=== PATIENT | female | born 1965 | race Hispanic/Latino ===

== ENCOUNTER 2017-12-10 11:04 | Emergency (ER) | payer SELFPAY ==
[2017-12-10 12:50] LABS: #Eosinphils 0.1 thou/uL (0.0-0.7); #Lymphocytes 1.6 thou/uL (1.20-3.40); #Monocytes 0.4 thou/uL (0.11-0.59); #Neutrophils 5.4 thou/uL (1.40-6.50); %Basophils 0.2 % (0.0-1.0); %Eosinophils 1.7 % (0.0-10.0); %Monocytes 5.6 % (0.0-10.0); %Neutrophils 71.6 % (42.0-75.0); Hemoglobin 14.4 g/dL (12.0-16.0); Mean Corpuscular HGB CONC 34.4 g/dL (32.0-36.0); Mean Corpuscular Hemoglobin 29.3 pg (27.0-31.0); Mean Corpuscular Volume 85.3 fL (78.0-98.0); Mean Platelet Volume 8.3 fL (7.4-10.4); Platelet Count 220 thou/uL (130-400); RBC Distribution Width 14.2 % (11.5-14.5); Red Blood Cell (RBC) Count 4.92 mill/uL (4.20-5.40); White Blood Cell (WBC) Count 7.6 thou/uL (4.8-10.8)
--- NOTE | 2017-12-10 12:51 | RAD ---
1 VIEW CHEST: Date: 12/10/17 COMPARISON: 12/01/16. HISTORY: Hypertension. FINDINGS: Normal cardiac silhouette. Pulmonary vessels and pulmonary hilum are normal. Costophrenic angles are clear. No consolidation or mass. No pneumothorax or osseous abnormalities. IMPRESSION: No acute cardiopulmonary process. POS: [facility]
[2017-12-10 13:06] LABS: CKMB 1.7 ng/mL (0-6.6); Troponin I Less than 0.010 ng/mL (< 0.028)
--- NOTE | 2017-12-10 14:14 | CT ---
CT BRAIN WITHOUT CONTRAST: Date: 12/10/17 HISTORY: Headache. Hypertension. COMPARISON: CT brain from 2007. FINDINGS: There is subtle increased density of the basilar artery, likely a focal area of calcification with so me atherosclerotic plaque. No acute hemorrhage or infarct. No midline shift or mass effect. Ventricul ar size and extra-axial CSF spaces are normal. Paranasal sinuses and mastoids are clear. IMPRESSION: No acute intracranial abnormality. POS: [facility]
[2017-12-10] MEDS ORDERED: Metoclopramide HCl 10 MG/2 ML VIAL ONE (14:39)
[2017-12-10] MEDS ORDERED: Ketorolac Tromethamine 30 MG/ML VIAL ONE (14:39)
[2017-12-10] MEDS ORDERED: Dexamethasone 4 mg/ml Vial ONE (14:39)
[2017-12-10] MEDS ORDERED: hydrALAZINE 20 MG/ML VIAL ONE (14:39)
== END 2017-12-10 16:24 | disposition home or self-care (01) ==
LOC: ERS 11:04
DX: I10 Essential (primary) hypertension (principal); Z79.899 Other long term (current) drug therapy
CPT/HCPCS: 36415; 70450; 71045; 82550; 82553; 83880; 84484; 85025; 93005; 96365; 96375; J0360; J1100; J1885; J2765

== ENCOUNTER 2018-08-08 09:16 | Emergency (ER) | payer OTHER, SELFPAY ==
[2018-08-08] MEDS ORDERED: Ketorolac Tromethamine 30 MG/ML VIAL ONE (10:01)
--- NOTE | 2018-08-08 10:21 | RAD ---
FRONTAL RADIOGRAPH CHEST: Date: 08/08/18 COMPARISON: 12/10/17. HISTORY: Hypertension, left arm numbness. FINDINGS: Lungs are clear. Heart and mediastinal contour unremarkable. IMPRESSION: No acute findings. POS: [facility]
[2018-08-08 10:24] LABS: #Eosinphils 0.1 thou/uL (0.0-0.7); #Lymphocytes 1.3 thou/uL (1.20-3.40); #Monocytes 0.3 thou/uL (0.11-0.59); #Neutrophils 5.6 thou/uL (1.40-6.50); %Basophils 0.2 % (0.0-1.0); %Eosinophils 0.9 % (0.0-10.0); %Lymphocytes 17.6 % (21.0-51.0); %Monocytes 4.3 % (0.0-10.0); Hemoglobin 14.1 g/dL (12.0-16.0); Mean Corpuscular HGB CONC 33.5 g/dL (32.0-36.0); Mean Corpuscular Hemoglobin 29.6 pg (27.0-31.0); Mean Corpuscular Volume 88.3 fL (78.0-98.0); Mean Platelet Volume 9.3 fL (7.4-10.4); Platelet Count 179 thou/uL (130-400); RBC Distribution Width 13.3 % (11.5-14.5); Red Blood Cell (RBC) Count 4.76 mill/uL (4.20-5.40); White Blood Cell (WBC) Count 7.3 thou/uL (4.8-10.8)
[2018-08-08 10:42] LABS: ALT (SGPT) 17 U/L (8-55); AST (SGOT) 17 U/L (5-34); Albumin 4.3 g/dL (3.5-5.0); Alkaline Phosphatase 85 U/L (40-150); Anion Gap 10 mmol/L (10-20); BUN (Urea Nitrogen) 9 mg/dL (9.8-20.1); Bilirubin, Total 0.4 mg/dL (0.2-1.2); Calc. Creatinine Clearance 0 mL/min (70-130); Calcium 9.8 mg/dL (7.8-10.44); Carbon Dioxide 24 mmol/L (22-29); Chloride 110 mmol/L (98-107); Estimated GFR-MDRD 86; Globulin 3.1 g/dL (2.4-3.5); Glucose 100 mg/dL (70-105); Potassium 3.5 mmol/L (3.5-5.1); Protein, Total 7.4 g/dL (6.0-8.3); Sodium 140 mmol/L (136-145)
[2018-08-08 11:11] LABS: Bilirubin Negative (Negative); Blood, Urine Negative (Negative); Clarity CLEAR (Clear); Glucose, Urine (Dipstick) Negative (Negative); Leukocyte Negative (Negative); Nitrite Negative (Negative); Protein, Urine (Dipstick) Negative (Neg-Trace); Specific Gravity, Urine 1.025 (1.002-1.036); Urobilinogen 0.2 mg/dL (0.2-1.0)
[2018-08-08] MEDS ORDERED: Morphine 4 MG/ML VIAL ONE (11:11)
[2018-08-08] MEDS ORDERED: Ondansetron PF 4 MG/2 ML Vial ONE (11:11)
[2018-08-08] MEDS ORDERED: hydrALAZINE 20 MG/ML VIAL ONE (11:54)
--- NOTE | 2018-08-08 12:14 | CT ---
CT HEAD WITHOUT IV CONTRAST: HISTORY: Headache. Hypertension. COMPARISON: 12/10/2017 FINDINGS: Right sphenoid and posterior right ethmoid sinus mucosal disease, worsening from prior exam (12/11/19 18). No focal mass or midline shift. No intraaxial or extraaxial hemorrhage. IMPRESSION: No significant acute intracranial process. No mass or bleed. Posterior right ethmoid and right sphe noid sinus mucosal disease. POS: [facility]
[2018-08-08 12:56] LABS: Troponin I Less than 0.010 ng/mL (< 0.028)
== END 2018-08-08 14:15 | disposition home or self-care (01) ==
LOC: ERS 09:16
DX: I10 Essential (primary) hypertension (principal); M79.602 Pain in left arm; Z87.891 Personal history of nicotine dependence; Z79.899 Other long term (current) drug therapy
CPT/HCPCS: 36415; 70450; 71045; 80053; 81003; 84484; 85025; 93005; 96374; 96375; J0360; J1885; J2270; J2405

== ENCOUNTER 2018-08-11 14:20 | Emergency (ER) | payer OTHER ==
[2018-08-11] MEDS ORDERED: Metoprolol Tartrate 50 MG TAB ONE (14:47)
--- NOTE | 2018-08-13 21:47 | EKG ---
Test Reason : Blood Pressure : / mmHG Vent. Rate : 104 BPM Atrial Rate : 104 BPM P-R Int : 154 ms QRS Dur : 094 ms QT Int : 354 ms P-R-T Axes : 054 016 073 degrees QTc Int : 465 ms Sinus tachycardia with Premature atrial complexes Cannot rule out Inferior infarct , age undetermined Abnormal ECG Confirmed by LAURE HERNANDEZ ([id number]), field map editor MARY ROCHA ([id number]) on 08/13/2018 9:46:42 PM Referred By: Confirmed By:LAURE HERNANDEZ
== END 2018-08-11 16:15 | disposition home or self-care (01) ==
LOC: ERS 14:20
DX: I10 Essential (primary) hypertension (principal); Z79.899 Other long term (current) drug therapy
CPT/HCPCS: 93005

== ENCOUNTER 2018-10-11 10:25 | Emergency (ER) | payer OTHER, SELFPAY ==
[2018-10-11] MEDS ORDERED: HYDROcodone/Acetaminophen 10/325 mg Tablet ONE (12:38)
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
[2018-10-11] MEDS ORDERED: Dexamethasone 4 MG TAB ONE (16:02)
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
== END 2018-10-11 16:00 | disposition home or self-care (01) ==
LOC: ERS 10:25
DX: S16.1XXA Strain of muscle, fascia and tendon at neck level, initial encounter (principal); M47.892 Other spondylosis, cervical region; I10 Essential (primary) hypertension; Z79.899 Other long term (current) drug therapy; X50.9XXA Other and unspecified overexertion or strenuous movements or postures, initial encounter
CPT/HCPCS: 72125; 72141; J8540

== ENCOUNTER 2018-11-08 17:25 | Emergency (ER) | payer OTHER ==
[2018-11-08] MEDS ORDERED: HYDROcodone/Acetaminophen 10/325 mg Tablet ONE (17:54)
== END 2018-11-08 18:49 | disposition home or self-care (01) ==
LOC: ERS 17:25
DX: M54.2 Cervicalgia (principal); I10 Essential (primary) hypertension; Z79.899 Other long term (current) drug therapy; Z79.891 Long term (current) use of opiate analgesic
CPT/HCPCS: 99283

== ENCOUNTER 2018-11-23 08:45 | Outpatient (CLI) | payer OTHER ==
[2018-11-23 10:04] LABS: Hemoglobin 13.3 g/dL (12.0-16.0); Mean Corpuscular HGB CONC 32.5 g/dL (32.0-36.0); Mean Corpuscular Hemoglobin 28.7 pg (27.0-31.0); Mean Corpuscular Volume 88.3 fL (78.0-98.0); Mean Platelet Volume 8.7 fL (7.4-10.4); Platelet Count 230 thou/uL (130-400); RBC Distribution Width 13.4 % (11.5-14.5); Red Blood Cell (RBC) Count 4.63 mill/uL (4.20-5.40); White Blood Cell (WBC) Count 8.4 thou/uL (4.8-10.8)
[2018-11-23 10:25] LABS: Anion Gap 11 mmol/L (10-20); BUN (Urea Nitrogen) 20 mg/dL (9.8-20.1); Calc. Creatinine Clearance 0 mL/min (70-130); Calcium 9.8 mg/dL (7.8-10.44); Carbon Dioxide 27 mmol/L (22-29); Chloride 107 mmol/L (98-107); Estimated GFR-MDRD 79; Glucose 90 mg/dL (70-105); Potassium 4.3 mmol/L (3.5-5.1); Sodium 141 mmol/L (136-145)
--- NOTE | 2018-11-24 11:28 | EKG ---
Test Reason : Blood Pressure : / mmHG Vent. Rate : 060 BPM Atrial Rate : 060 BPM P-R Int : 216 ms QRS Dur : 086 ms QT Int : 412 ms P-R-T Axes : 035 065 069 degrees QTc Int : 412 ms Sinus rhythm with 1st degree A-V block Otherwise normal ECG Confirmed by DEANNE CHANDLER ([id number]) on 11/24/2018 11:28:09 AM Referred By: MARLEN Confirmed By:DEANNE CHANDLER
== END 2018-11-23 08:46 | disposition home or self-care (01) ==
LOC: LABBT 08:45
PROVIDERS: ATTEND Neurological Surgery
DX: Z01.818 Encounter for other preprocedural examination (principal); M54.12 Radiculopathy, cervical region
CPT/HCPCS: 80048; 85027; 93005; 93010

== ENCOUNTER 2018-11-23 08:45 | Inpatient (IN) | payer OTHER ==
[2018-11-28] MEDS ORDERED: Fentanyl 250 MCG/5 ML VIAL ONE (10:00)
[2018-11-28] MEDS ORDERED: Sodium Chloride 0.9% 10 ML ONE (10:24)
[2018-11-28] MEDS ORDERED: Ondansetron HCl/PF 4 MG/2 ML Vial IVP PRN (11:47)
[2018-11-28] MEDS ORDERED: HYDROmorphone 2 MG/ML VIAL SLOW IVP PRN (11:47)
[2018-11-28] MEDS ORDERED: Promethazine HCl 25 MG/ML VIAL IM PRN ×2 (11:47→17:16)
[2018-11-28] MEDS ORDERED: Promethazine HCl 25 MG/ML VIAL SLOW IVP PRN (11:47)
--- NOTE | 2018-11-28 11:51 | OP ---
DATE OF PROCEDURE: 11/28/2018 TESTING MANAGER: Shukri Jorge PA-C PROCEDURE PERFORMED: 1. Anterior cervical diskectomy, C4 through C7 interbody arthrodesis. 2. Biomechanical device, local morselized autograft, demineralized bone matrix, anterior titanium instrumentation, C4 to C7. DESCRIPTION OF PROCEDURE: The patient was brought to the operating room and intubated. She was positioned supine in the modest extension on a gel-filled donut. An incision was made in the right precervical area and dissected medial to the sternocleidomastoid muscle, identified the anterior cervical spine and the level was confirmed by x-ray. We debrided the anterior osteophytes, placed distraction across the disk spaces, and using the operative microscope and microdissection techniques, completely decompressed the intervertebral disks from parameter foramen to foramen from C4 to C7. The bony endplates were then decorticated for the purpose of arthrodesis and appropriate-sized intervertebral biomechanical PEEK device was brought into the field, filled with demineralized bone matrix local morselized autograft, and tapped in place securely at C4-C5, C5-C6, and C6-C7. Next, the anterior plate was brought into the field and secured at C4, C5, C6, and C7 using two 14-mm screws at each level. The wound was then extensively irrigated. MAC hemostasis was secured. The wound was closed in anatomic layers over a drain. Job ID: [id number]
[2018-11-28] MEDS ORDERED: Fentanyl 100 MCG/2 ML VIAL ONE (12:05)
[2018-11-28] MEDS ORDERED: HYDROmorphone 2 MG/ML VIAL ONE (12:17)
[2018-11-28 13:33] VITALS: BMI 36.2
[2018-11-28] MEDS ORDERED: Glycopyrrolate 0.2 MG/ML 5 ML SYRINGE ONE (15:27)
[2018-11-28] MEDS ORDERED: Ondansetron PF 4 MG/2 ML Vial ONE (15:27)
[2018-11-28] MEDS ORDERED: Dexamethasone 20 MG/5 ML VIAL ONE (15:27)
[2018-11-28] MEDS ORDERED: PROPOFOL 200 MG/20 ML VIAL ONE (15:27)
[2018-11-28] MEDS ORDERED: Rocuronium Bromide 10 MG/ML (10ML VIAL) ONE (15:27)
[2018-11-28] MEDS ORDERED: Lidocaine 1% PF 5 ML VIAL ONE (15:27)
[2018-11-28] MEDS ORDERED: Mag-Al 1200 mg/1200 mg/30 ML UDCUP PO PRN (17:16)
[2018-11-28] MEDS ORDERED: traMADol HCl 50 MG TAB PO PRN ×2 (17:16)
[2018-11-28] MEDS ORDERED: Promethazine 25 MG TAB PO PRN (17:16)
[2018-11-28] MEDS ORDERED: HYDROcodone/Acetaminophen 10/325 mg Tablet PO PRN (17:16)
[2018-11-28] MEDS ORDERED: Ondansetron PF 4 MG/2 ML Vial IVP PRN (17:16)
[2018-11-28] MEDS ORDERED: tiZANidine HCl 4 MG TAB PO PRN (17:16)
[2018-11-28] MEDS ORDERED: Promethazine HCl 12.5 MG SUPP PR PRN (17:16)
[2018-11-28] MEDS ORDERED: diphenhydrAMINE 50 MG/ML VIAL IVP PRN (17:37)
[2018-11-28] MEDS ORDERED: Milk Of Magnesia 30 ML UDCUP PO PRN (17:37)
[2018-11-28] MEDS ORDERED: Meperidine HCl/PF 25 MG/ML VIAL SLOW IVP PRN (17:37)
[2018-11-28] MEDS ORDERED: diphenhydrAMINE 25 MG CAP PO PRN (17:37)
[2018-11-28] MEDS: HYDROcodone/Acetaminophen 10/325 mg Tablet PO PRN ×2 (18:09→23:11)
[2018-11-28] MEDS: Sodium Chloride 0.9% 1,000 ML IV SCH (18:13)
[2018-11-28] MEDS: CEFAZOLIN 2 GM in Premix Bag 1 BAG IVPB SCH (20:52)
[2018-11-29] MEDS: CEFAZOLIN 2 GM in Premix Bag 1 BAG IVPB SCH (05:34)
[2018-11-29] MEDS: Sodium Chloride 0.9% 1,000 ML IV SCH (05:34)
[2018-11-29] MEDS: HYDROcodone/Acetaminophen 10/325 mg Tablet PO PRN (05:35)
[2018-11-29] MEDS ORDERED: Cyclobenzaprine 10 MG TAB PO PRN (07:36)
[2018-11-29] MEDS ORDERED: Loperamide HCl 2 MG CAP PO PRN (07:39)
[2018-11-29] MEDS ORDERED: Acetaminophen 325 MG TAB PO PRN (07:39)
[2018-11-29] MEDS ORDERED: Artificial Tears 18 DROP/0.9 ML EA EYE PRN (07:39)
[2018-11-29] MEDS ORDERED: Senokot S 8.6-50 MG TAB PO PRN (07:39)
[2018-11-29] MEDS ORDERED: hydrALAZINE 20 MG/ML VIAL SLOW IVP PRN (07:39)
[2018-11-29] MEDS ORDERED: Bisacodyl 10 MG SUPP PR PRN (07:39)
[2018-11-29] MEDS ORDERED: Sodium Chloride 0.65% Nasal 44 ML BOT EA NARE PRN (07:39)
[2018-11-29] MEDS ORDERED: Calcium Carbonate 500 MG ChewTAB PO PRN (07:39)
[2018-11-29] MEDS ORDERED: Diabetic Tussin 200 MG/10 ML UDCUP PO PRN (07:39)
[2018-11-29] MEDS ORDERED: Cepastat Lozenges 1 LOZ PO PRN (07:39)
[2018-11-29 08:01] VITALS: TEMP 98.5
[2018-11-29 08:03] VITALS: BP 153/83
[2018-11-29] MEDS ORDERED: Metoprolol Tartrate 25 MG TAB PO SCH (09:00)
[2018-11-29] MEDS ORDERED: Ramipril 5 MG CAP PO SCH (09:00)
[2018-11-29] MEDS ORDERED: Hydrochlorothiazide 25 MG TAB PO SCH (09:00)
[2018-11-29] MEDS ORDERED: Gabapentin 300 MG CAP PO SCH (09:00)
[2018-11-29] MEDS ORDERED: Dexamethasone 4 mg/ml Vial SLOW IVP SCH (09:15)
--- NOTE | 2018-11-29 11:02 | PDOC.PN ---
- Subjective Encounter Start Date: 11/29/18 Encounter Start Time: 09:10 -: old records requested/rev Patient seen and examined. No new complaints. No overnight events, this morning drain removed - Objective Resuscitation Status - Order Detail: 11/29/18 07:41 Resuscitation Status Routine Resuscitation Status: FULL: Full Resuscitation MAR Reviewed: Yes Vital Signs & Weight: Vital Signs (12 hours) Temp Pulse Resp BP BP Pulse Ox 11/29/18 07:57 98.5 F 66 18 153/83 H 99 11/29/18 04:34 98.0 F 58 L 20 147/79 H 93 L 11/29/18 00:22 98.3 F 61 20 124/74 95 Weight Weight 204 lb 8 oz I&O: 11/28/18 11/29/18 11/30/18 06:59 06:59 06:59 Intake Total 2220 Output Total 65 Balance 2155 Phys Exam - Physical Examination Constitutional: NAD HEENT: PERRLA, moist MMs, sclera anicteric Neck: no JVD, supple surgical site with dressing Respiratory: no wheezing, no rales, no rhonchi Cardiovascular: RRR, no significant murmur, no rub Gastrointestinal: soft, non-tender, no distention, positive bowel sounds Musculoskeletal: no edema, pulses present Neurological: non-focal, normal sensation, moves all 4 limbs Lymphatic: no nodes Psychiatric: normal affect, A&O x 3 Skin: no rash, normal turgor Dx/Plan (1) S/P cervical discectomy Code(s): Z98.890 - OTHER SPECIFIED POSTPROCEDURAL STATES Status: Acute (2) CKD (chronic kidney disease) stage 2, GFR 60-89 ml/min Code(s): N18.2 - CHRONIC KIDNEY DISEASE, STAGE 2 (MILD) Status: Chronic (3) Former smoker Status: Chronic (4) HTN (hypertension) Code(s): I10 - ESSENTIAL (PRIMARY) HYPERTENSION Status: Chronic (5) Obesity (BMI 30-39.9) Code(s): E66.9 - OBESITY, UNSPECIFIED Status: Chronic - Plan cont current plan of care, plan discussed w/ family * medication reviewed as below * symptomatic treatment * medically stable * plan for discharge today * pain control, pain meds on discharge as per surgeon * discussed with . Review of Systems - Review of Systems ENT: negative: Ear Pain, Ear Discharge, Nose Pain, Nose Discharge, Nose Congestion, Mouth Pain, Mouth Swelling, Throat Pain, Throat Swelling, Other Respiratory: negative: Cough, Dry, Shortness of Breath, Hemoptysis, SOB with Excertion, Pleuritic Pain, Sputum, Wheezing Cardiovascular: negative: chest pain, palpitations, orthopnea, paroxysmal nocturnal dyspnea, edema, light headedness, other Gastrointestinal: negative: Nausea, Vomiting, Abdominal Pain, Diarrhea, Constipation, Melena, Hematochezia, Other Genitourinary: negative: Dysuria, Frequency, Incontinence, Hematuria, Retention , Other Musculoskeletal: Neck Pain. negative: Shoulder Pain, Arm Pain, Back Pain, Hand Pain, Leg Pain, Foot Pain, Other Skin: negative: Rash, Lesions, Shawn, Bruising, Other - Medications/Allergies Allergies/Adverse Reactions: Allergies Allergy/AdvReac Type Severity Reaction Status Date / Time morphine Allergy Verified 11/23/18 15:42 Medications: Current Medications Acetaminophen (Tylenol) 650 mg PO Q6H PRN PRN Reason: Mild Pain (1-3) Hydrocodone Bitart/Acetaminophen ([place] 10/325) 2 tab PO Q4H PRN PRN Reason: PAIN (4-6) Last Admin: 11/29/18 05:35 Dose: 2 tab Amlodipine Besylate (Norvasc) 10 mg PO [facility] Artificial Tears (Tears Naturale) 2 drop EA EYE PRN PRN PRN Reason: Dry Eyes Bisacodyl (Dulcolax) 10 mg DC DAILYPRN PRN PRN Reason: Constipation Calcium Carbonate (Tums) 1,000 mg PO Q4H PRN PRN Reason: Heartburn or Indigestion Cyclobenzaprine HCl (Flexeril) 5 mg PO TID PRN PRN Reason: Muscle Spasm Dexamethasone (Decadron) 6 mg SLOW IVP NOW [facility] Stop: 11/29/18 12:00 Diphenhydramine HCl (Benadryl) 25 mg PO Q6H PRN PRN Reason: Itching Diphenhydramine HCl (Benadryl) 25 mg IVP Q6H PRN PRN Reason: Itching Gabapentin (Neurontin) 300 mg PO TID [facility] Last Admin: 11/29/18 08:58 Dose: 300 mg Guaifenesin (Robitussin Sf) 200 mg PO Q4H PRN PRN Reason: Cough Hydralazine HCl (Apresoline) 10 mg SLOW IVP Q4H PRN PRN Reason: SBP > 180 and HR < 70 Hydrochlorothiazide (Hydrochlorothiazide) 12.5 mg PO BID [facility] Last Admin: 11/29/18 08:59 Dose: 12.5 mg Sodium Chloride (Normal Saline 0.9%) 1,000 mls @ 75 mls/hr IV .[id number] [facility] Last Admin: 11/29/18 05:34 Dose: 1,000 mls Cefazolin Sodium/Dextrose 2 gm (/ Device) 50 mls @ 100 mls/hr IVPB Q8HR [facility] Last Admin: 11/29/18 05:34 Dose: 50 mls Loperamide HCl (Imodium) 2 mg PO PRN PRN PRN Reason: Diarrhea/Loose Stools Magnesium Hydroxide (Milk Of Magnesium) 30 ml PO Q12H PRN PRN Reason: Constipation Meperidine HCl (Demerol) 25 mg SLOW IVP Q2H PRN PRN Reason: Moderate Breakthrough Pain Meperidine HCl (Demerol) 35 mg SLOW IVP Q2H PRN PRN Reason: Severe Breakthrough Pain Metoprolol Tartrate (Lopressor) 25 mg PO BID [facility] Last Admin: 11/29/18 08:59 Dose: 25 mg Ondansetron HCl (Zofran) 4 mg IVP Q24H PRN PRN Reason: Nausea/Vomiting Promethazine HCl (Phenergan) 12.5 mg IM Q4H PRN PRN Reason: Nausea/Vomiting Promethazine HCl (Phenergan) 12.5 mg PO Q4H PRN PRN Reason: Nausea/Vomiting Promethazine HCl (Phenergan Suppository) 12.5 mg DC Q4H PRN PRN Reason: Nausea/Vomiting Ramipril (Altace) 10 mg PO DAILY [facility] Senna/Docusate Sodium (Senokot S) 2 tab PO BID PRN PRN Reason: Constipation Sodium Chloride (Flush - Normal Saline) 10 ml IVF PRN PRN PRN Reason: Saline Flush Sodium Chloride ([place] Nasal [place] 0.65%) 0 ml EA NARE QIDPRN PRN PRN Reason: Nasal Congestion Throat Lozenges (Cepastat Lozenges) 1 arlen PO Q2H PRN PRN Reason: Sore Throat Tizanidine HCl (Zanaflex) 4 mg PO Q6H PRN PRN Reason: MUSCLE SPASM Tramadol HCl (Ultram) 100 mg PO Q6H PRN PRN Reason: PAIN (4-6)
--- NOTE | 2018-11-29 12:54 | DIS ---
DATE OF ADMISSION: 11/28/2018 DATE OF DISCHARGE: 11/29/2018 PRIMARY CARE PHYSICIAN: [facility] Call admission. DISCHARGE DISPOSITION: Home. PRIMARY DISCHARGE DIAGNOSIS: Status post cervical diskectomy. SECONDARY DISCHARGE DIAGNOSES: 1. Hypertension. 2. Former smoker. 3. Chronic kidney disease, stage 2. PRIMARY PROCEDURE/OPERATION: Anterior cervical diskectomy by Dr. Barrientos. RADIOLOGICAL INVESTIGATION: None. SIGNIFICANT LABS: None. DISCHARGE MEDICATION: 1. Norvasc 10 mg p.o. at bedtime. 2. Gabapentin 300 mg p.o. t.i.d. 3. Hydrochlorothiazide 12.5 mg twice daily. 4. Metoprolol 25 mg p.o. twice daily. 5. Ramipril 10 mg in the morning. 6. Zanaflex 4 mg q.6 hourly p.r.n. 7. [place] 1 tablet q.6 hourly p.r.n. CONTRAINDICATION: None. CODE STATUS: Full code. INPATIENT CONSULTANTS: Dr. Barrientos was primary. Sound Team was consulted for medical comanagement. ALLERGIES: MORPHINE. DISCHARGE PLAN: Posthospital, the patient will follow up with primary care physician in one week. The patient will follow up with Dr. Barrientos as instructed. HOSPITAL COURSE: A 53-year-old female with above-mentioned medical problem, who was admitted by Dr. Barrientos. The patient underwent anterior cervical diskectomy on November 28, 2018. Postprocedure, Sound Team was consulted for medical comanagement. The patient's medical problems remained stable. We resumed all her home medication while in-hospital. This morning, patient had drain removed and the patient was planned for discharge by Primary Team. The patient is seen and examined at bedside today. Please see my progress note from today for further detail. Plan of care discussed with the patient's family member as well. Job ID: [id number]
--- NOTE | 2018-11-29 15:21 | DIS ---
DATE OF ADMISSION: 11/28/2018 DATE OF DISCHARGE: 11/29/2018 The patient is a 53-year-old female, status post C4 to C7 ACDF. Following the surgery, she was transitioned to [address] [place] [address]. Her pain was well controlled with p.o. medications. She did have some mild dysphagia, but was tolerating p.o. liquids and a soft diet. This was treated with 6 mg of IV Decadron on postoperative day #1. Her OSCAR drains trended down nicely and had 20 mL out over the first night. I removed this at the bedside on postoperative day #1. The patient is up ambulating in the department without any difficulty. On exam this morning, she is awake and alert, in no acute distress. She has free active range of motion of all extremities. No focal motor weakness. Her incision is dry, intact, and soft. We will plan to dismiss the patient to home. I have discussed home care precautions and will follow up in 2 weeks. Job ID: [id number]
[2018-11-29] MEDS ORDERED: Amlodipine 10 MG TAB PO SCH (21:00)
== END 2018-11-29 12:15 | disposition home or self-care (01) | DRG 473 ==
LOC: SURG A 11-28 06:58 → T4-B 11-28 13:11
PROVIDERS: ADMIT Neurological Surgery; ATTEND Neurological Surgery
PROC: 0RG20A0 Fusion of 2 or more Cervical Vertebral Joints with Interbody Fusion Device, Anterior Approach, Anterior Column, Open Approach (ICD-10-PCS; principal; 2018-11-28)
PROC: 0RB30ZZ Excision of Cervical Vertebral Disc, Open Approach (ICD-10-PCS; 2018-11-28)
DX: M50.11 Cervical disc disorder with radiculopathy, high cervical region (principal); I12.9 Hypertensive chronic kidney disease with stage 1 through stage 4 chronic kidney disease, or unspecified chronic kidney disease; N18.2 Chronic kidney disease, stage 2 (mild); E66.9 Obesity, unspecified; Z88.5 Allergy status to narcotic agent; Z68.38 Body mass index [BMI] 38.0-38.9, adult; Z87.891 Personal history of nicotine dependence
CPT/HCPCS: 76000; C1713; C1776; J0131; J0690; J1100; J1170; J2001; J2175; J2405; J2704; J3010; J3490

== ENCOUNTER 2018-12-14 10:09 | Outpatient (CLI) | payer OTHER ==
--- NOTE | 2018-12-14 11:39 | RAD ---
CERVICAL SPINE SERIES 3 VIEWS: Date: 12/14/18 HISTORY: Follow-up surgery. COMPARISON: 02/09/14 exam. FINDINGS: The patient has undergone anterior cervical fusion. There has been placement of a plate and screws wh ich extends from C4 to C7. Markers of disc implants are within the intervening disc levels. Minimal p revertebral soft tissue swelling is seen. IMPRESSION: Postoperative changes of the spine. POS: [facility]
== END 2018-12-14 10:10 | disposition home or self-care (01) ==
LOC: TBSIIMAG 10:09
PROVIDERS: ATTEND Neurological Surgery
DX: M54.12 Radiculopathy, cervical region (principal); Z98.890 Other specified postprocedural states
CPT/HCPCS: 72040

== ENCOUNTER 2020-10-04 18:19 | Emergency (ER) | payer OTHER ==
[2020-10-04 19:24] LABS: #Basophils 0.1 thou/uL (0.0-0.2); #Eosinphils 0.1 thou/uL (0.0-0.7); #Lymphocytes 1.7 thou/uL (1.20-3.40); #Monocytes 0.4 thou/uL (0.11-0.59); #Neutrophils 6.3 thou/uL (1.40-6.50); %Basophils 0.8 % (0.0-1.0); %Eosinophils 1.7 % (0.0-10.0); %Lymphocytes 19.8 % (21.0-51.0); %Monocytes 4.3 % (0.0-10.0); %Neutrophils 73.3 % (42.0-75.0); Hemoglobin 14.1 g/dL (12.0-16.0); Mean Corpuscular HGB CONC 34.5 g/dL (32.0-36.0); Mean Corpuscular Hemoglobin 31.9 pg (27.0-31.0); Mean Corpuscular Volume 92.3 fL (78.0-98.0); Mean Platelet Volume 9.3 fL (7.4-10.4); Platelet Count 144 thou/uL (130-400); RBC Distribution Width 13.1 % (11.5-14.5); Red Blood Cell (RBC) Count 4.44 mill/uL (4.20-5.40); White Blood Cell (WBC) Count 8.6 thou/uL (4.8-10.8)
[2020-10-04 19:46] LABS: ALT (SGPT) 11 U/L (8-55); AST (SGOT) 13 U/L (5-34); Albumin 3.9 g/dL (3.5-5.0); Alkaline Phosphatase 122 U/L (40-110); Anion Gap 12 mmol/L (10-20); BUN (Urea Nitrogen) 13 mg/dL (9.8-20.1); Bilirubin, Total 0.2 mg/dL (0.2-1.2); CK (CPK) 66 U/L (29-168); Calc. Creatinine Clearance 0 mL/min (70-130); Calcium 9.3 mg/dL (7.8-10.44); Carbon Dioxide 27 mmol/L (22-29); Chloride 108 mmol/L (98-107); Glucose 116 mg/dL (70-105); Lipase 152 U/L (8-78); Protein, Total 6.9 g/dL (6.0-8.3); Sodium 143 mmol/L (136-145)
[2020-10-04 20:20] LABS: Bilirubin Negative (Negative); Blood, Urine Negative (Negative); Clarity Turbid (Clear); Glucose, Urine (Dipstick) Normal (Negative); Ketone, Urine Negative (Negative); Leukocyte Negative Leu/uL (Negative); Nitrite Negative (Negative); Protein, Urine (Dipstick) Negative (Neg-Trace); Specific Gravity, Urine 1.013 (1.002-1.036); Urobilinogen Normal mg/dL (Less than 2); pH, Urine 7.5 (5.0-9.0)
[2020-10-04] MEDS ORDERED: Nitroglycerin 2% Ointment 1 INCH/1 GM Packet ONE (20:45)
[2020-10-04] MEDS ORDERED: Aspirin Chewable 81 MG TAB ONE (20:45)
[2020-10-04] MEDS ORDERED: HYDROcodone/Acetaminophen 10/325 mg Tablet ONE (22:03)
== END 2020-10-04 22:00 | disposition home or self-care (01) ==
LOC: ERS 18:19
DX: M25.512 Pain in left shoulder (principal); I10 Essential (primary) hypertension; Z87.891 Personal history of nicotine dependence; Z79.899 Other long term (current) drug therapy
CPT/HCPCS: 36415; 71045; 80053; 81003; 82550; 83690; 83880; 84484; 85025; 93005

== ENCOUNTER 2021-10-18 10:28 | Emergency (ER) | payer OTHER ==
[2021-10-18] MEDS ORDERED: Ketorolac Tromethamine 30 MG/ML VIAL ONE ×2 (11:57→11:58)
[2021-10-18] MEDS ORDERED: Albuterol 200 PUFF (6.7GM INHALER) ONE (11:57)
[2021-10-18] MEDS ORDERED: Cyclobenzaprine 10 MG TAB ONE (11:58)
== END 2021-10-18 12:58 | disposition home or self-care (01) ==
LOC: ERS 10:28
DX: J20.9 Acute bronchitis, unspecified (principal); I10 Essential (primary) hypertension; Z87.891 Personal history of nicotine dependence; Z79.899 Other long term (current) drug therapy
CPT/HCPCS: 71045; 96372; J1885

== ENCOUNTER 2021-10-30 13:43 | Inpatient (IN) | payer OTHER ==
[2021-10-30 14:34] LABS: Hemoglobin 13.9 g/dL (12.0-16.0); Mean Corpuscular Hemoglobin 31.4 pg (27.0-31.0); Mean Corpuscular Volume 92.4 fL (78.0-98.0); Mean Platelet Volume 8.3 fL (7.4-10.4); Platelet Count 197 thou/uL (130-400); RBC Distribution Width 12.7 % (11.5-14.5); Red Blood Cell (RBC) Count 4.44 mill/uL (4.20-5.40); White Blood Cell (WBC) Count 21.8 thou/uL (4.8-10.8)
[2021-10-30 14:54] LABS: Band 42 % (5-11); Lymphocytes 5 % (21-51); MDiff Complete? YES; Monocytes 2 % (0-10); Neutrophil 51 % (42-75); Platelet Morphology Comment Appears Adequate; RBC Morphology Normal; Reflex for Review?? YES
[2021-10-30 14:59] LABS: ALT (SGPT) 11 U/L (8-55); AST (SGOT) 13 U/L (5-34); Albumin 3.9 g/dL (3.5-5.0); Alkaline Phosphatase 97 U/L (40-110); Anion Gap 15 mmol/L (10-20); BUN (Urea Nitrogen) 12 mg/dL (9.8-20.1); Bilirubin, Total 1.1 mg/dL (0.2-1.2); Calc. Creatinine Clearance 0 mL/min (70-130); Calcium 9.5 mg/dL (7.8-10.44); Carbon Dioxide 21 mmol/L (22-29); Chloride 106 mmol/L (98-107); Globulin 2.9 g/dL (2.4-3.5); Glucose 153 mg/dL (70-105); Lipase 13 U/L (8-78); Potassium 3.1 mmol/L (3.5-5.1); Protein, Total 6.8 g/dL (6.0-8.3); Sodium 139 mmol/L (136-145)
[2021-10-30] MEDS ORDERED: Ketorolac Tromethamine 30 MG/ML VIAL ONE (15:10)
[2021-10-30] MEDS ORDERED: Ondansetron PF 4 MG/2 ML Vial ONE (15:10)
[2021-10-30] MEDS ORDERED: cefTRIAXone\\ROCEPHIN 2 GM VIAL ONE (16:04)
[2021-10-30] MEDS ORDERED: Azithromycin 500 MG VIAL ONE ×2 (16:04→16:10)
[2021-10-30] MEDS ORDERED: Aspirin Chewable 81 MG TAB ONE (16:13)
[2021-10-30 16:16] LABS: Bacteria/HPF None Seen HPF (None Seen); Bilirubin Negative (Negative); Blood, Urine 2+ (Negative); Clarity Clear (Clear); Glucose, Urine (Dipstick) 30 mg/dL (Negative); Ketone, Urine 40 mg/dL (Negative); Leukocyte Negative Leu/uL (Negative); Nitrite Negative (Negative); Protein, Urine (Dipstick) 100 mg/dL (Neg-Trace); Specific Gravity, Urine 1.031 (1.002-1.036); pH, Urine 6.5 (5.0-9.0)
[2021-10-30] MEDS ORDERED: Acetaminophen 325 MG TAB PO PRN (16:51)
[2021-10-30] MEDS ORDERED: Guaifenesin DM 100-10/5 ML UDCUP PO PRN (16:51)
[2021-10-30] MEDS ORDERED: Ondansetron ODT 4 MG TAB PO PRN (16:51)
[2021-10-30] MEDS ORDERED: Enoxaparin Sodium 40 MG/0.4 ML SYRINGE SC SCH (17:00)
[2021-10-30] MEDS ORDERED: Ketorolac Tromethamine 30 MG/ML VIAL IVP PRN (17:15)
[2021-10-30] MEDS ORDERED: Potassium Chloride 20 MEQ TAB PO SCH (17:30)
[2021-10-30] MEDS ORDERED: Azithromycin 500 MG in Sodium Chloride 0.9% 250 ML 250 ML IVPB SCH (17:30)
[2021-10-30 17:57] LABS: Legionella Urinary Ag Negative (Negative); Strep pneumo Urine Ag NEGATIVE (NEGATIVE)
[2021-10-30 18:27] VITALS: BMI 29.5
[2021-10-30] MEDS: Hydrochlorothiazide 25 MG TAB PO SCH (20:59)
[2021-10-30] MEDS ORDERED: Amlodipine 10 MG TAB PO SCH (21:00)
[2021-10-30] MEDS ORDERED: Cyclobenzaprine 10 MG TAB PO SCH (21:00)
[2021-10-30] MEDS ORDERED: diphenhydrAMINE 50 MG CAP PO SCH (21:00)
[2021-10-30] MEDS: Metoprolol Tartrate 25 MG TAB PO SCH (21:00)
[2021-10-30] MEDS ORDERED: Acetaminophen 500 MG TAB PO SCH (21:00)
[2021-10-31 04:10] LABS: #Lymphocytes 1.1 thou/uL (1.20-3.40); #Monocytes 0.6 thou/uL (0.11-0.59); #Neutrophils 11.2 thou/uL (1.40-6.50); %Basophils 0.1 % (0.0-1.0); %Eosinophils 0.1 % (0.0-10.0); %Lymphocytes 8.5 % (21.0-51.0); %Monocytes 4.8 % (0.0-10.0); %Neutrophils 86.5 % (42.0-75.0); Hemoglobin 12.6 g/dL (12.0-16.0); Mean Corpuscular HGB CONC 33.6 g/dL (32.0-36.0); Mean Corpuscular Hemoglobin 31.6 pg (27.0-31.0); Mean Corpuscular Volume 94.2 fL (78.0-98.0); Mean Platelet Volume 8.6 fL (7.4-10.4); Platelet Count 159 thou/uL (130-400); RBC Distribution Width 12.8 % (11.5-14.5); Red Blood Cell (RBC) Count 3.99 mill/uL (4.20-5.40)
[2021-10-31 04:36] LABS: ALT (SGPT) 10 U/L (8-55); AST (SGOT) 10 U/L (5-34); Albumin 3.2 g/dL (3.5-5.0); Alkaline Phosphatase 76 U/L (40-110); Anion Gap 10 mmol/L (10-20); BUN (Urea Nitrogen) 9 mg/dL (9.8-20.1); Bilirubin, Total 0.6 mg/dL (0.2-1.2); Calc. Creatinine Clearance 114 mL/min (70-130); Calcium 9.1 mg/dL (7.8-10.44); Carbon Dioxide 22 mmol/L (22-29); Chloride 111 mmol/L (98-107); Globulin 3.1 g/dL (2.4-3.5); Glucose 92 mg/dL (70-105); Potassium 3.3 mmol/L (3.5-5.1); Protein, Total 6.3 g/dL (6.0-8.3); Sodium 140 mmol/L (136-145)
[2021-10-31] MEDS ORDERED: Potassium Chloride 20 MEQ TAB PO SCH (08:00)
[2021-10-31] MEDS: Metoprolol Tartrate 25 MG TAB PO SCH (08:41)
[2021-10-31] MEDS: Hydrochlorothiazide 25 MG TAB PO SCH (08:41)
[2021-10-31] MEDS ORDERED: Ramipril 5 MG CAP PO SCH (09:00)
[2021-10-31] MEDS ORDERED: Floranex 1 GM Packet PO SCH (12:00)
[2021-10-31] MEDS ORDERED: AMOXicillin 250 MG CAP PO SCH (14:00)
[2021-10-31 15:09] VITALS: BP 132/69; TEMP 98.7
[2021-10-31] MEDS ORDERED: cefTRIAXone\\ROCEPHIN 1 GM in Sodium Chloride 0.9% 100 ML IVPB SCH (16:00)
[2021-10-31] MEDS ORDERED: cefTRIAXone\\ROCEPHIN 2 GM in Sodium Chloride 0.9% 100 ML IVPB SCH (16:00)
[2021-10-31] MEDS ORDERED: Azithromycin 200 MG/5 ML Oral Suspension PO SCH (17:00)
[2021-10-31] MEDS ORDERED: Azithromycin 500 MG in Sodium Chloride 0.9% 250 ML 250 ML IVPB SCH (17:00)
[2021-11-01] MEDS ORDERED: Azithromycin 250 MG TAB PO SCH (09:00)
[2021-11-01] MEDS ORDERED: Floranex 1 GM Packet PO SCH (09:00)
== END 2021-10-31 17:58 | disposition home or self-care (01) | DRG 871 ==
LOC: ERS 13:43 → 2NO 16:28
PROVIDERS: ADMIT Student in an Organized Health Care Education/Training Program; ATTEND Student in an Organized Health Care Education/Training Program
DX: A41.9 Sepsis, unspecified organism (principal); J18.9 Pneumonia, unspecified organism; N39.0 Urinary tract infection, site not specified; E87.6 Hypokalemia; G47.33 Obstructive sleep apnea (adult) (pediatric); I10 Essential (primary) hypertension; R01.1 Cardiac murmur, unspecified; Z88.5 Allergy status to narcotic agent; Z79.899 Other long term (current) drug therapy; Z98.51 Tubal ligation status; Z87.891 Personal history of nicotine dependence
CPT/HCPCS: 36415; 71045; 71275; 80053; 81003; 81015; 83605; 83690; 83735; 83880; 84145; 84484; 85025; 85060; 87040; 87086; 87449; 87899; 93005; J0456; J0696; J1650; J1885; J2405; J7050; U0003; U0005

== ENCOUNTER 2022-04-16 12:05 | Emergency (ER) | payer OTHER ==
[2022-04-16] MEDS ORDERED: Nitroglycerin 0.4 MG TAB 1 EACH ONE (13:22)
[2022-04-16] MEDS ORDERED: Aspirin Chewable 81 MG TAB ONE (13:22)
[2022-04-16 13:36] LABS: #Eosinphils 0.1 thou/uL (0.0-0.7); #Lymphocytes 1.8 thou/uL (1.20-3.40); #Monocytes 0.4 thou/uL (0.11-0.59); #Neutrophils 6.8 thou/uL (1.40-6.50); %Basophils 0.1 % (0.0-1.0); %Eosinophils 1.2 % (0.0-10.0); %Lymphocytes 19.3 % (21.0-51.0); %Monocytes 4.8 % (0.0-10.0); %Neutrophils 74.6 % (42.0-75.0); Hemoglobin 15.6 g/dL (12.0-16.0); Mean Corpuscular Hemoglobin 31.7 pg (27.0-31.0); Mean Corpuscular Volume 93.3 fl (78.0-98.0); Mean Platelet Volume 10.3 fL (7.4-10.4); Platelet Count 145 10x3/uL (130-400); RBC Distribution Width 12.7 % (11.5-14.5); Red Blood Cell (RBC) Count 4.92 mill/uL (4.20-5.40); White Blood Cell (WBC) Count 9.1 10x3/uL (4.8-10.8)
[2022-04-16 13:58] LABS: ALT (SGPT) 19 U/L (8-55); AST (SGOT) 28 U/L (5-34); Albumin 4.5 g/dL (3.5-5.0); Alkaline Phosphatase 89 U/L (40-110); Anion Gap 16 mmol/L (10-20); BUN (Urea Nitrogen) 15 mg/dL (9.8-20.1); Bilirubin, Total 0.4 mg/dL (0.2-1.2); Calc. Creatinine Clearance 0 mL/min (70-130); Calcium 10.4 mg/dL (7.8-10.44); Carbon Dioxide 19 mmol/L (22-29); Chloride 106 mmol/L (98-107); Estimated GFR 101; Globulin 3.5 g/dL (2.4-3.5); Glucose 106 mg/dL (70-105); Lipase 30 U/L (8-78); Potassium 3.8 mmol/L (3.5-5.1); Sodium 137 mmol/L (136-145)
[2022-04-16] MEDS ORDERED: Cyclobenzaprine 10 MG TAB ONE (16:34)
== END 2022-04-16 17:30 | disposition home or self-care (01) ==
LOC: ERS 12:05
DX: M25.512 Pain in left shoulder (principal); I10 Essential (primary) hypertension; Z79.899 Other long term (current) drug therapy
CPT/HCPCS: 36415; 71046; 80053; 83690; 84484; 85025; 93005; 94760

== ENCOUNTER 2023-06-15 12:40 | Outpatient (CLI) | payer OTHER | END 2023-06-15 12:41 | disposition home or self-care (01) | LOC: BICMRI 12:40 | PROVIDERS: ATTEND Student in an Organized Health Care Education/Training Program | DX: M25.512 Pain in left shoulder (principal); S46.912A Strain of unspecified muscle, fascia and tendon at shoulder and upper arm level, left arm, initial encounter; S43.432A Superior glenoid labrum lesion of left shoulder, initial encounter; M25.812 Other specified joint disorders, left shoulder ==

== ENCOUNTER 2023-07-30 11:22 | Outpatient (CLI) | payer OTHER | END 2023-07-30 11:23 | disposition home or self-care (01) | LOC: BICMRI 11:22 | PROVIDERS: ATTEND Orthopaedic Surgery | DX: M54.12 Radiculopathy, cervical region (principal); M48.02 Spinal stenosis, cervical region; M83.9 Adult osteomalacia, unspecified; M53.82 Other specified dorsopathies, cervical region; Z98.1 Arthrodesis status | CPT/HCPCS: 72141 ==